=== PATIENT | female | born 1980 | race Caucasian/White ===

== ENCOUNTER 2017-08-15 17:23 | Emergency (ER) | payer MEDICAID ==
[~2017-08-15] VITALS: Ht 162.6 cm; Wt 107.0 kg
[2017-08-15] MEDS ORDERED: CLINDAMYCIN HC150 MG PO (18:15)
== END 2017-08-15 18:22 | disposition home or self-care (01) ==
LOC: ED 17:23
DX: S61.451A Open bite of right hand, initial encounter (principal); Z88.0 Allergy status to penicillin; Z88.5 Allergy status to narcotic agent; W54.0XXA Bitten by dog, initial encounter
CPT/HCPCS: 99283